=== PATIENT | female | born 1930 | race Caucasian/White ===

== ENCOUNTER 2016-10-18 13:59 | Inpatient (IN) | payer MEDICARE, OTHER ==
[~2016-10-18] VITALS: Ht 157.5 cm; Wt 64.2 kg
--- NOTE | ~2016-10-18 | HP ---
PATIENT'S NAME: JOSHUA RODRIGUEZ [facility] AGE: 86 Y [address] ROOM: [place] [address] [place] [facility] [place]: 10/18/2016 History & Physical DISCHARGE DATE: FAMILY PHYSICIAN: Cheyenne Rasmussen MD ATTENDING PHYSICIAN: TEGAN TRAN DATE OF SERVICE: CHIEF COMPLAINT: Left leg cellulitis. HISTORY OF PRESENT ILLNESS: This is an 86-year-old female with a long history of essential thrombocytosis and a newly diagnosed AML, on chemo for that with Dr. Trevino, who presents from their office with left leg cellulitis that failed outpatient treatment. The patient was noted to have left leg cellulitis for about 2 weeks and has been tried with oral antibiotics as well as IV antibiotics with clindamycin and then later ceftriaxone, but left leg cellulitis and redness continued to spread and expand and showing no resolution. The patient also throughout the course of the infection was noted to have on and off subjective fevers and low- grade fevers measured at clinic as well. The patient is now admitted for further management and evaluation after failing outpatient treatment. The patient during my evaluation is in no apparent distress, very pleasant. Does not describe any complaints. Denies any fever or chills. Does describe some pain in her left lower leg that is rated about 4/10, otherwise, very comfortable. The patient denies any cough, chest pain, shortness of breath, dizziness, or lightheadedness as well. Denies any nausea, vomiting, diarrhea, or constipation. PAST MEDICAL HISTORY: 1. AML, recently started on chemo. 2. Essential thrombocytosis. FAMILY HISTORY: The patient has a history of heart disease in the father. SOCIAL HISTORY: The patient is fairly independent. No history of alcohol, drug, or smoking history. REVIEW OF SYSTEMS: A 10-point review of systems was conducted and were all negative except as mentioned in the HPI. PHYSICAL EXAMINATION: PATIENT'S NAME: JOSHUA RODRIGUEZ [facility] AGE: 86 Y [address] ROOM: [place] [address] [place] [facility] [place]: 10/18/2016 History & Physical DISCHARGE DATE: FAMILY PHYSICIAN: Cheyenne Rasmussen MD ATTENDING PHYSICIAN: TEGAN TRAN VITAL SIGNS: Blood pressure 132/68, heart rate 106, respiratory rate 18, saturating 98% on room air. GENERAL: The patient awake, alert, and oriented x3. No apparent distress. HEENT: Moist mucous membranes. No scleral icterus or conjunctival pallor noted. SKIN: Left lower extremity swollen, erythematous, and warm to touch as well. HEART: S1 and S2. Regular rate and rhythm. LUNGS: Clear to auscultation bilaterally. ABDOMEN: Soft, nontender, nondistended, with positive bowel sounds. MUSCULOSKELETAL: Ankle pain noted with range of motion, but this is related to the swelling around the area from the cellulitis. NEURO: Grossly nonfocal. LABORATORY DATA: Admission labs pending. ASSESSMENT AND PLAN: 1. Left lower extremity cellulitis. The patient has been treated with clindamycin and ceftriaxone as an outpatient for the past 2 weeks without showing significant improvement. This is in the setting of immune compromise with relation to her active acute myeloid leukemia and being on chemo for that. The patient, otherwise, is hemodynamically stable. We will draw blood cultures x2 and start treatment with IV vancomycin and follow clinical progress. 2. Acute myeloid leukemia. Closely follows up with Dr. Trevino. Has finished 2 cycles of chemo so far. 3. Essential thrombocytosis. Has had a long history of this. Had been on hydroxyurea for several years until her recent diagnosis of acute myeloid leukemia. 4. Deep venous thrombosis prophylaxis. We will use subcutaneous heparin. MD YENNY WRIGHT/arnaldo /[id number] D: [id number] T: [id number] HISTORY & PHYSICAL
--- NOTE | ~2016-10-18 | ESTC ---
Cardiac Perfusion Imaging Demographics Patient Name MICHAEL Crum Gender Female Patient Number [id number] Race Visit Number [id number] Ethnicity Corporate ID Room Number G3220 Accession Number [id number] Height 62 inches Date of 1930 Weight 140 pounds Interpreting Jose Morel Date of study 11/06/2016 Physician Supervising /HALEY [place] Technologist Danilo Raphael MD Ordering Physician Jose Morel Stress Miracle Tan MD air and hydronic balancing technician [facility] Stress ECG Reading Romelia [place] Nurse Ana Rinaldi RN Physician Procedure Procedure Type: Nuclear Stress Test:Pharmacological, Lexiscan, Cardiolite Stress Test Procedure Start time: 11/06/2016 08:11 Indications: NSVT and Chest discomfort. Conclusions Summary Small inferolateral mild reversible defect most consistent with ischemia. LVEF:72%. No RWMAs. Stress Protocols Resting ECG NSR Pre-stress physical exam: s1 s2, rrr no wheezing o2 sats 100% on RA Predicted HR: 133 bpm ECG Findings No ECG changes suggestive of ischemia. Arrhythmias No rhythm abnormality. Symptoms Chest tightness. Shortness of breath. Stress Interpretation Appropriate hemodynamic response to Lexiscan. No significant ST-T wave changes with Lexiscan. ECG portion is negative for ischemia by diagnostic criteria. Imaging Results High risk findings Summed scores - Summed stress score: 12 - Summed rest score: 8 - Summed difference score: 4 Stress ejection Ejection fraction:73 % EDV :73 ml ESV :20 ml Stroke volume :53 ml LV mass :105 gr LV size:Normal Normal LV function Imaging Protocols Rest Stress Isotope:Tc99m Sestamibi IV Isotope: Tc99m Sestamibi IV Isotope dose:9.9 mCi Isotope dose:32.2 mCi Date:11/06/2016 07:10 Date:11/06/2016 08:27 Technique: SPECT Technique: Gated Supine SPECT Supine IV remains in place after procedure. Scan Time:45-60 minutes post Scan Time:45-60 minutes post injection injection Procedure Medications - Regadenoson (Lexiscan) 0.4 mg IV over 10-15 sec. I.V. . - aminophylline 125 mg IV . Medical History Admission Data Admission date: 10/18/2016 Admission Time: 13:59 Hospital Status: Inpatient. Signatures dtt: Maria Teresa Garcia dtd: 11/06/16 0811 Physician Self Edit
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
--- NOTE | ~2016-10-18 | CON ---
PATIENT'S NAME: JOSHUA GUZMAN [facility] AGE: 86 Y [address] ROOM: [place] [address] [place] [facility] [place] DATE: 10/18/2016 Consultation DISCHARGE DATE: FAMILY PHYSICIAN: Cheyenne Rasmussen MD ATTENDING PHYSICIAN: TEGAN TRAN DATE OF CONSULTATION: 10/31/2016 REFERRING PHYSICIAN: Asia Trevino MD INFECTIOUS DISEASE CONSULTATION REASON FOR CONSULTATION: Nonresponding left lower extremity infection. HISTORY: Ms. Guzman is an 86-year-old female with a history of previously diagnosed essential thrombocytosis and recently diagnosed with AML. She has been on chemotherapy. She has been neutropenic as well. She apparently developed a left lower extremity cellulitis without any antecedent trauma, has been treated as an outpatient initially with oral antibiotics and then clindamycin and ceftriaxone, but erythema and pain seemed to not resolve, so she was admitted to the hospital. She has now been on Zosyn and clindamycin here along with a little bit of vancomycin after presentation. She is still continuing to have a very poor response. Her leg is quite sore, tender, swollen, and red. She reported that she had on and off fevers prior to coming in and then here as well. She is still on treatment and hoping to get more chemo. She has been told that she is not curable but wants to continue treatment apparently. PAST MEDICAL HISTORY: Significant for AML and chemo and a prior history of essential thrombocytosis. FAMILY HISTORY: Positive for heart disease. SOCIAL HISTORY: She does not smoke, drink, or use illicit drugs. MEDICATIONS: Noted. She is on Zosyn since admission. She has been on clindamycin, last about 3 to 4 days. REVIEW OF SYSTEMS: All remaining review of systems otherwise negative with pertinent positives and negatives in the HPI. PATIENT'S NAME: JOSHUA GUZMAN [facility] AGE: 86 Y [address] ROOM: [place] [address] [place]: [facility] [place] DATE: 10/18/2016 Consultation DISCHARGE DATE: FAMILY PHYSICIAN: Cheyenne Rasmussen MD ATTENDING PHYSICIAN: TEGAN TRAN PHYSICAL EXAMINATION: GENERAL: She is not in any acute distress. Sitting up in a chair. Awake, alert, and oriented. She seems in a very good shape for an 86-year-old with AML. VITAL SIGNS: Her T-max is 98.5, blood pressure 154/66, pulse is 107, respirations are 18. HEENT: Without icterus or thrush. LUNGS: Clear. HEART: Little tachy and regular. ABDOMEN: Soft and nontender. EXTREMITIES: Show erythema and some skin peeling in her left pretibial area, about [facility] down towards just above the ankle. It is quite tender, and there is obvious induration and appears to be maybe some fluid collection underneath but hard to tell. It is warm. It appears to be consistent with infection. SKIN: Otherwise without rash. She does have a small scab on her right dorsal hand. DATA: Her white count, she has been neutropenic since she has been here, currently 1.6 today with an absolute neutrophil count of 300, hemoglobin 7.1, platelet count 163. Creatinine 0.7. CRP 2.05. Blood cultures have no growth. Urine culture has no growth. Stool C. diff toxin on 10/24 has no growth. MRI showed no abscess or osteo. subcutaneous edema and skin thickening, which may reflect cellulitis. Edema enhancement within the muscles could be reactive or less likely infectious myositis, diabetic myonecrosis would the consideration as well. ASSESSMENT AND PLAN: 1. Left calf skin and soft tissue infection. Strongly suspect she has a deep infection here. She does not have posture abscess on MRI but clearly does not have any neutrophils to make any pus or abscess. Bad situation unfortunately given her leukemia and neutropenia. We will change her antibiotics to vancomycin and meropenem and see if we get any response here. This unfortunately could be a limb threatening deal if we can not get this to start to improve, however, does show some signs of improvement but is certainly not resolved despite weeks and weeks of antibiotics. We will see how she does. Possible, she may need a debridement of any necrotic fatty tissue etc., however, I do not know if things are going to heal if she does have a procedure. Unfortunately, in the big scheme of things, she has AML and is 86 years old. After having had a myeloproliferative disorder, I suspect her prognosis is extremely poor. Infection is highly likely in this setting, and even though she is in very good shape for 86 years old, she still has a poor prognosis. PATIENT'S NAME: JOSHUA GUZMAN [facility] AGE: 86 Y [address] ROOM: [place] [address] [place]: [facility] [place] DATE: 10/18/2016 Consultation DISCHARGE DATE: FAMILY PHYSICIAN: Cheyenne Rasmussen MD ATTENDING PHYSICIAN: TEGAN TRAN Please call with questions. MD LIZZ GORDON/modl /[id number] d: 10/31/16 2320 t: 11/06/16 1451, CONSULTATION REPORT
--- NOTE | ~2016-10-18 | CON ---
PATIENT'S NAME: JOSHUA GUZMAN [facility] AGE: 86 Y [address] ROOM: [facility] [place], [place] [address] LOCATION: [place] ADMIT DATE: 10/18/2016 Consultation DISCHARGE DATE: FAMILY PHYSICIAN: Cheyenne Rasmussen MD ATTENDING PHYSICIAN: TEGAN TRAN DATE OF CONSULTATION: 11/06/2016 REFERRING PHYSICIAN: Asia Trevino MD FOLLOWUP INPATIENT CONSULTATION NOTE HISTORY OF PRESENT ILLNESS: I re-evaluated Ms. Guzman on November 06, 2016. She states that her left lower extremity swelling, discomfort, and tenderness has improved moderately over the past week. She denies numbness or paresthesias at her left foot. She states that she is bearing full weight without difficulty. PHYSICAL EXAMINATION: There is still moderate induration circumferentially at the distal third of the tibia. There was no residual erythema. There is no fluctuance. There are no active skin lesions. There is no swelling, tenderness, erythema, or induration at the proximal two-third of the left calf. There is full range of motion of the left ankle with 5/5 motor strength with ankle dorsiflexion and plantar flexion strength. 1+ dorsalis pedis pulse. Sensation to light touch intact circumferentially at the left foot. IMPRESSION: Cellulitis, left leg (slowly resolving). No evidence of abscess formation. No evidence of compartment syndrome. No necrotic tissue to debride. PLAN: Continue IV antibiotics. I will continue to monitor her. I have reviewed her status directly with Concepcion Cordero PA-C, and updated her regarding my thoughts and recommendations. I have asked to be contacted if there is any perception if the patient is deteriorating. MD MISHA HERNANDEZ/arnaldo /[id number] d: 11/09/16 0047 t: 11/17/16 1005, CONSULTATION REPORT
--- NOTE | ~2016-10-18 | CON ---
PATIENT'S NAME: JOSHUA RODRIGUEZ [facility] AGE: 86 Y [address] ROOM: [place] [address] [place] [facility] [place] DATE: 10/18/2016 Consultation DISCHARGE DATE: FAMILY PHYSICIAN: Cheyenne Rasmussen MD ATTENDING PHYSICIAN: TEGAN TRAN DATE OF CONSULTATION: 10/23/2016 REFERRING PHYSICIAN: Ole Ojeda M.D. REASON FOR VISIT: Left lower leg cellulitis. HISTORY OF PRESENT ILLNESS: This is a pleasant 86-year-old female patient who was admitted to [facility] with left lower leg cellulitis. She has significant history of AML (recently diagnosed), thrombocytosis, and a left lower leg DVT. The patient has had cellulitis about one month now. She failed outpatient therapy with clindamycin and ceftriaxone. The patient was noted to have a low- grade fever at home, so she was admitted for further treatment. The patient denies history of congestive heart failure, PE, venous insufficiency, shortness of breath, or changes in bowel habits. She denies pain. She reports a fair oral intake. She is normally able to complete her activities of daily living at home. She is complaining of right buttocks "discomfort." PAST MEDICAL HISTORY: 1. AML, recently diagnosed. The patient sees Dr. Trevino. 2. Essential thrombocytosis. 3. History of left lower leg DVT. 4. Constipation. PAST SURGICAL HISTORY: Bilateral cataract removal, tonsillectomy, removal of benign cyst from bilateral breasts, D and C. FAMILY HISTORY: The patient's father from an [place]. SOCIAL HISTORY: The patient lives in [place], [place]. She quit smoking in 2000. She denies alcohol or illicit drug use. ALLERGIES: PATIENT'S NAME: JOSHUA RODRIGUEZ [facility] AGE: 86 Y [address] ROOM: [place] [address] [place] [facility] [place] DATE: 10/18/2016 Consultation DISCHARGE DATE: FAMILY PHYSICIAN: Cheyenne Rasmussen MD ATTENDING PHYSICIAN: TEGAN TRAN CODEINE. CURRENT MEDICATIONS: Pertinent to this dictation Zosyn IV. Please refer to the eMAR for further details. REVIEW OF SYSTEMS: A 10-point review of systems was completed and all are negative except as mentioned above in the HPI. PHYSICAL EXAMINATION: VITAL SIGNS: Temperature 98.1, pulse 105, respirations 16, blood pressure 154/74, and pulse oximetry 93% on room air. Height 5 feet and 2 inches and weight 62.8 kg. GENERAL: The patient is alert and oriented x3. Pleasant with cares. In no acute distress. Appears her stated age. HEENT: Head normocephalic and atraumatic. Oral mucosa intact. NEUROLOGIC: Grossly nonfocal. LUNGS: Respirations even and unlabored. ABDOMEN: Soft and nontender. EXTREMITIES: +2 pedal pulses. Capillary refill intact. Left lower extremity hot to touch. SKIN: Left lower extremity has +1 edema. Erythemic and hot to touch. Negative Homans signs. Improving per the patient. No open areas noted. Dry flakes noted to left posterior calf. Heels intact. Right buttock has a small blanchable red area with skin rolling. LABORATORY DATA: White blood cell count 1.7, hemoglobin 8.5, hematocrit 25.6, and platelets 64. Sodium 143, potassium 3.3, chloride 109, bicarb 23, BUN 8, creatinine 0.7, glucose 98, and prealbumin 10. ASSESSMENT AND PLAN: Again, this is a pleasant 86-year-old female patient who was admitted to [facility] with left leg cellulitis. 1. Left lower extremity cellulitis. Improving per the patient. She is on IV Zosyn. Discussed compression options with the patient. She would benefit from an Unna boot. She is very hesitant. She is willing to try a Tubigrip stocking. I instructed nursing to apply Tubigrip size C to bilateral lower legs from her toes to her popliteal crease. The patient is to have on in the morning and off at bedtime. Discussed elevation. The patient is to have her left leg at waist level or higher at all times when lying in bed. Discussed the importance of ankle/calf pump muscle exercises. I do not see a venous Doppler in [employer] or on the patient's chart, however, per hospitalist SHIPMASTER's note it was negative. PATIENT'S NAME: JOSHUA RODRIGUEZ [facility] AGE: 86 Y [address] ROOM: [address] [address] [place] [facility] [place] DATE: 10/18/2016 Consultation DISCHARGE DATE: FAMILY PHYSICIAN: Cheyenne Rasmussen MD ATTENDING PHYSICIAN: TEGAN TRAN 2. AML. The patient on neutropenic precautions. Dr. Trevino on board. Low prealbumin. The patient may benefit from supplements or dietary consult. 3. History of left leg deep venous thrombosis. The patient is on heparin. 4. Right buttock blanchable red area with skin rolling. This is not a pressure ulcer but could develop into one. Discussed pressure redistribution measures with the patient. She is to turn in bed side-to- side q.2 hours. Iris cushion needs to be placed to her chair. She is to be of no longer than 2 hours at a time. Nursing is to apply Aloe [place] q.i.d. and p.r.n. incontinence to right buttock. I would like to thank Dr. Ojeda for this consultation. ROMAN DUMONT APRN FOR MD RAYNE FINLEY/arnaldo /[id number] d: 10/23/16 1735 t: 11/19/16 1508, CONSULTATION REPORT
--- NOTE | ~2016-10-18 | DS ---
PATIENT'S NAME: JOSHUA RODRIGUEZ [facility] AGE: 86 Y [address] ROOM: [address] [place] [id number] LOCATION: [facility] [place] ADMIT DATE: 10/18/2016 Discharge Summary DISCHARGE DATE: 11/10/2016 FAMILY PHYSICIAN: Cheyenne Rasmussen MD ATTENDING PHYSICIAN: Ole Ojeda PRIMARY DIAGNOSES: 1. Left lower extremity cellulitis. 2. Myositis, left lower extremity. 3. Pancytopenia secondary to chemotherapy. 4. Neutropenia. 5. Acute myelogenous leukemia. 6. Tachycardia, physiologic. 7. Chronic diastolic congestive heart failure. 8. Acute hypoxic respiratory failure. 9. Paroxysmal supraventricular tachycardia. 10. Chronic deconditioning. OPERATIONS OR PROCEDURES: Nuclear stress test was carried out 11/06/[address] scan per PE protocol, performed on 11/06/2016, negative for PE. Small bilateral pleural effusions were noted. Echocardiogram was performed on 10/22/2016, demonstrating an ejection fraction of 60%, mild aortic stenosis, and an elevated RVSP at 40. HISTORY OF ILLNESS/REASON FOR ADMISSION: Please refer to the H and P dictated on 10/18/[address] Frazier. HOSPITAL COURSE: The patient was admitted to hospital as noted above with a presumptive diagnosis of left lower extremity cellulitis. Please see the hospital chart for specific details regarding this fairly extended hospital stay. Briefly, she was treated with broad-spectrum antibiotic therapy for suspected cellulitis. She was not septic. IV vancomycin was given, and she was monitored closely. Her clinical progress was very slow. She did receive some local wound care with the wound ostomy care nurse. Hematology/Oncology also monitored the patient over the course of her hospital stay. The skin findings including erythema, resolved relatively quickly; however, the patient had some persistent induration and tenderness overlying the left leg. Imaging studies were obtained, and Orthopedic Surgery was consulted. It was felt that she had some deep tissue involvement including myositis, but no abscess and no indication for any surgical intervention. The antibiotic regimen was continued. PATIENT'S NAME: JOSHUA RODRIGUEZ [facility] AGE: 86 Y [address] ROOM: [address] [place], [place] [address] LOCATION: [facility] [place] ADMIT DATE: 10/18/2016 Discharge Summary DISCHARGE DATE: 11/10/2016 FAMILY PHYSICIAN: Cheyenne Rasmussen MD ATTENDING PHYSICIAN: Ole Ojeda The patient remained clinically stable over the course of her hospital stay. Her counts were quite low, and she did require some PRBC transfusion. Because of her neutropenic status, she was continued on broad-spectrum antibiotic therapy. There were some adjustments made to the regimen, and Infectious Disease was eventually consulted as well. She did develop some episodes of PSVT, and Cardiology was consulted. There was concern for PE and CT angiogram was obtained, but this was negative. She did undergo Lexiscan Cardiolite stress testing, but was recommended for medical management only. By the end of her third week of her hospital stay it was felt she would be stable enough for discharge to home. Off IV antibiotic therapy and plans for close clinical followup with primary care provider. DISCHARGE INSTRUCTIONS: DIET: Regular as tolerated. ACTIVITY: As tolerated. MEDICATIONS: 1. Acyclovir 800 mg p.o. b.i.d. 2. Fluconazole 100 mg p.o. daily. 3. Levofloxacin 500 mg p.o. daily. 4. Acetaminophen 325 mg p.o. q.4 hours p.r.n. 5. Zofran 8 mg p.o. q.6 hours p.r.n. nausea. 6. Multivitamin daily. 7. Metoprolol 75 mg p.o. b.i.d. 8. Minocycline 100 mg p.o. b.i.d. 9. Florastor 250 mg p.o. b.i.d. 10. Tramadol 50 mg p.o. q.6 hours p.r.n. pain. FOLLOWUP: She will follow up with her primary care provider, Dr. Rasmussen, in 3 days. Follow up with Dr. Trevino, Hematology/Oncology in 5 days. She will have home health with [facility] and physical therapy and occupational therapy at home. CONDITION ON DISCHARGE: Fair. Total time spent on discharge process, 60 minutes. PATIENT'S NAME: JOSHUA RODRIGUEZ [facility] AGE: 86 Y [address] ROOM: [address] [address] LOCATION: [facility] [place] ADMIT DATE: 10/18/2016 Discharge Summary DISCHARGE DATE: 11/10/2016 FAMILY PHYSICIAN: Cheyenne Rasmussen MD ATTENDING PHYSICIAN: Ole Ojeda MD AJS/arnaldo /[id number] d: 11/22/16 0403 t: 11/23/16 0804, DISCHARGE SUMMARY
--- NOTE | ~2016-10-18 | ECHO ---
Transthoracic Echocardiography Report (TTE) Demographics Patient Name JOSHUA RODRIGUEZ Date of Study 10/22/2016 Patient Number [id number] Visit Number [id number] Date of 1930 Room Number G3213 Accession Number [id number] Gender Female Age 86 year(s) Referring Allie Desouza MD Manager Web Application Miracle Tan Physician CS Physician Interpreting Jose Morel Rn Telephone Triage Physician Supervising Ordering Physician /MLP Nurse Stress Senior Supplier Quality Engineer Conclusions Summary The estimated left ventricular ejection fraction is 60% with normal WM,wall thickness and internal dimensions. Mild mitral regurgitation by color Doppler. There is mild aortic stenosis by the Continuity Equation. The peak velocity is 2.04 m/s, the mean gradient is 11 mmHg, and the valve area based on the continuity equation is 1.69 cm2, stroke volume index is 39.25 ml/m2. Mild tricuspid regurgitation by color Doppler. There is mild TR with the pulmonary pressures (RVSP) is in the mid 40s. Procedure Type of Study TTE procedure:2D Echocardiogram. Procedure Date Date: 10/22/2016 Start: 09:25 AM Study Location: Inpatient Portable Indications:Tachycardia. Additional Indications:Cancer Patient Appropriate Use Criteria: 9 Patient Status: Routine HR: 105 bpm BP: 134/62 mmHg M-Mode/2D Measurements LV Diastolic Dimension: 4.68 cm LV Systolic Dimension: 3.51 cm LV Septum Diastolic: 1 cm LV PW Diastolic: 1 cm AO Root Dimension: 2 cm Cardiac Output: 6.76 l/min AV Cusp Separation: 1 cm RV Diastolic Dimension: 3.08 cm LA volume: 46 ml LVOT: 2 cm RV Base: 2.79 cm LVOT VTI: 20.5 cm RV Mid: 1.95 cm LV Stroke volume: 64.37 ml TAPSE: 3.37 cm TDI-S': 18 cm/s Doppler Measurements AV Peak Velocity: 2.04 m/s MV Peak E-Wave: 0.86 m/s AV Peak Gradient: 16.65 mmHg MV Peak A-Wave: 1.23 m/s AV Mean Gradient: 10 mmHg MV E/A Ratio: 0.7 LVOT Peak Velocity: 1.11 m/s MV P1/2t: 32 msec TR Gradient:35.76 mmHg PV Peak Velocity: 1.28 m/s Estimated RAP:10 mmHg PV Peak Gradient: 6.55 mmHg Estimated RVSP: 46 mmHg Estimated PASP: 45.76 mmHg E' Septal Velocity: 0.06 m/s A' Septal Velocity: 0.09 m/s E' Lateral Velocity: 0.07 m/s A' Lateral Velocity: 0.11 m/s Findings Left Ventricle Normal left ventricle size and function. Right Ventricle Normal right ventricle structure and function. Left Atrium Normal left atrial size. Right Atrium Normal right atrial size. Mitral Valve Mild mitral regurgitation by color Doppler. Aortic Valve There is mild aortic stenosis by the Continuity Equation. The peak velocity is 2.04 m/s, the mean gradient is 11 mmHg, and the valve area based on the continuity equation is 1.69 cm2, stroke volume index is 39.25 ml/m2. Tricuspid Valve Mild tricuspid regurgitation by color Doppler. There is moderate pulmonary hypertension. The pulmonary pressure (RVSP) is 45 mmHg. Pulmonic Valve Normal pulmonic valve structure and function. Pericardial Effusion No evidence of pericardial effusion. Miscellaneous Visualized portions of the aortic root and ascending aorta appear normal in size. Pleural Effusion No evidence of pleural effusion. Contractility Score LV regional wall motion:(0-Non visualized 1-Normal 2-Hypokinesis 3-Akinesis 4-Dyskinesis 5-Aneurysm) Signature dtt: Maria Teresa Garcia dtd: 10/22/16 0925 Physician Self Edit
[~2016-10-18 13:59] MED LIST: DIFLUCAN100 MG PO; LEVAQUIN500 MG PO; TYLENOL325 MG PO; ZOVIRAX800 MG PO
[2016-10-18] MEDS ORDERED: ZOFRAN8 MG PO (14:42)
[2016-10-18] MEDS ORDERED: THERAGRAN-M1 TAB PO (14:42)
--- NOTE | 2016-10-18 16:24 | NUR ---
Pt is 86 y/o female admit for left leg cellulitis for hospitalist. Allergies to advil,benadryl,and codeine. Red and yellow bracelets on. Pt alert and oriented x3. Family at bedside. Resides at home with . Hx leukemia- dx'd 2 months ago,DVT,cellulitis around ankles,leaking/dribbling,urgency, ongoing chemo tx's. Pt came over from ' office. Pt has been treating her cellulitis for about a month with oral clindamycin and IV Rocephin as an outpatient but has had no improvement.
--- NOTE | 2016-10-18 17:09 | NUR ---
Significant Event: Patient admitted to floor for left lower leg cellulitis. Will be started on IV fluids and antibiotics. Rates pain at a 5. Leg elevated on a pillow per patient request. Patient does have leg pump to right leg but not to left. Redness marked for reference. Regular diet. IV started 2 days ago at cancer center prior to blood transfusion. Follow up: Continue to monitor.
[2016-10-18 18:02] LABS: HEMATOCRIT 32.9 % (30.0-46.0); HEMOGLOBIN 10.8 g/dL (10.0-15.0); MCH 29.8 pg (27.0-34.0); MCHC 32.8 gm/dL (32.0-36.5); MCV 90.6 fl (83.0-98.0); MPV 9.5 fl (9.4-12.4); PLATELET COUNT 66 K/uL (150-450); RBC 3.63 M/uL (3.00-5.00); RDW-CV 17.4 % (11.9-14.6); WBC 2.4 K/uL (4.0-11.0)
[2016-10-18 18:18] LABS: ALBUMIN 2.8 gm/dL (3.5-5.0); BLOOD UREA NITROGEN 19 mg/dL (6-24); CALCIUM 8.6 mg/dL (8.5-10.5); CHLORIDE 105 mMol/L (96-110); CO2 26 mMol/L (22-32); CREATININE 0.7 mg/dL (0.5-1.1); ESTIMATED GFR (MDRD EQUATION) > 60; MAGNESIUM 2.3 mg/dL (1.3-2.6); PHOSPHORUS 3.5 mg/dL (2.5-4.9); SODIUM 141 mMol/L (135-145)
[2016-10-18 19:03] LABS: ABSOLUTE NEUTROPHIL CT (ANC) 0.4 K/uL (1.8-7.8); LYMPHOCYTE # 1.7 K/uL (0.8-4.0); LYMPHOCYTE % 67 %; MONOCYTE # 0.3 K/uL (0.0-1.0); SEGMENTED NEUTROPHIL # 0.4 K/uL (1.8-7.8); SEGMENTED NEUTROPHIL % 16 %
--- NOTE | 2016-10-19 04:38 | NUR ---
Significant Event: A/0 X 3. HAD ULTRAM 50MG TAB X 2, LAST AT 0328 FOR PAIN RATED AT 3. LATER SLEEPING. LEFT LEG ELEVATED ON PILLOW. IV RESTARTED BY FLIGHT IN RIGHT UPPER ANTERIOR FOREARM. HAS RIGHT CALF PNEUMATIC ON. NONE ON LEFT LEG. HAS REDDNESS AND EDEMA TO LEFT LOWER [id number]. DENIES NUMBNESS TINGLING. ON ATB THERAPY. Follow up:
[2016-10-19 05:07] LABS: HEMATOCRIT 30.4 % (30.0-46.0); HEMOGLOBIN 9.8 g/dL (10.0-15.0); MCH 29.3 pg (27.0-34.0); MCHC 32.2 gm/dL (32.0-36.5); MCV 90.7 fl (83.0-98.0); MPV 9.2 fl (9.4-12.4); RBC 3.35 M/uL (3.00-5.00); RDW-CV 17.3 % (11.9-14.6); WBC 2.1 K/uL (4.0-11.0)
[2016-10-19 05:09] LABS: PLATELET COUNT 49 K/uL (150-450)
[2016-10-19 06:17] LABS: ABSOLUTE NEUTROPHIL CT (ANC) 0.5 K/uL (1.8-7.8); BANDED NEUTROPHILS % 1 %; LYMPHOCYTE # 1.4 K/uL (0.8-4.0); LYMPHOCYTE % 68 %; MONOCYTE # 0.2 K/uL (0.0-1.0); SEGMENTED NEUTROPHIL # 0.5 K/uL (1.8-7.8); SEGMENTED NEUTROPHIL % 22 %
--- NOTE | 2016-10-19 13:06 | NUR ---
SPOKE TO PATIENT REGARDING CM AND OUR ROLE. PATIENT LIVES IN OWN HOME WITH HER SPOUSE AND HAS FAMILY THAT LIVE NEAR BY WHO ARE SUPPORTIVE. SHE HAS ALL HER DME AND SHE DOES NOT ANTICPATE ANY DISCHARGE NEEDS AT THIS TIME. CM WILL CONT TO FOLLOW NEEDED.
--- NOTE | 2016-10-19 14:58 | NUR ---
Significant Event: PT AOX3. VSS, HRs SLIGHTLY TACHY, ON ROOM AIR, AFEBRILE. ORDERS TO CALL HOSPITALIST IF TEMP >100.5. PLACED IN NEUTROPENIC PRECAUTIONS PER MD ORDERS. IF PLT ARE <50, HOLD HEPARIN. AMBULATING WITH SBA, GAITBELT AND WALKER. LLE IS EDEMATOUS, RED- ELEVATED ON PILLOW. CONTINUES ON IV ABX, NS RUNNING @ 75 TO R FA. TOLERATING REGULAR DIET. DAILY WT. Follow up: MONITOR LABS, NEUTROPENIC PRECAUTIONS, PAIN CONTROL
[2016-10-19 15:47] LABS: ALBUMIN 2.7 gm/dL (3.5-5.0); ANION GAP 9.2 (10.0-19.0); BLOOD UREA NITROGEN 14 mg/dL (6-24); CALCIUM 8.3 mg/dL (8.5-10.5); CHLORIDE 104 mMol/L (96-110); CO2 29 mMol/L (22-32); CREATININE 0.6 mg/dL (0.5-1.1); ESTIMATED GFR (MDRD EQUATION) > 60; PHOSPHORUS 3.3 mg/dL (2.5-4.9); POTASSIUM 4.2 mMol/L (3.7-5.1); SODIUM 138 mMol/L (135-145)
--- NOTE | 2016-10-20 03:53 | NUR ---
Significant Event:pt is a/o x3. iv to r fa has ns @ 75ml/hr. pt has l leg marked, redness is receding, still john edemotus. pt is a emory w/ walker and gait belt. pt in neutropenic precautions. hold heparin if plt <50. pt slightly tachy in the low 100's. slight hypertension but afebrile. Follow up:
[2016-10-20 04:53] LABS: HEMATOCRIT 30.8 % (30.0-46.0); MCH 28.9 pg (27.0-34.0); MCHC 32.5 gm/dL (32.0-36.5); RBC 3.46 M/uL (3.00-5.00); RDW-CV 16.8 % (11.9-14.6)
[2016-10-20 05:02] LABS: PLATELET COUNT 52 K/uL (150-450); WBC 1.7 K/uL (4.0-11.0)
[2016-10-20 05:09] LABS: ALBUMIN 2.6 gm/dL (3.5-5.0); ANION GAP 11.7 (10.0-19.0); BLOOD UREA NITROGEN 10 mg/dL (6-24); CALCIUM 8.3 mg/dL (8.5-10.5); CHLORIDE 107 mMol/L (96-110); CO2 26 mMol/L (22-32); CREATININE 0.6 mg/dL (0.5-1.1); ESTIMATED GFR (MDRD EQUATION) > 60; PHOSPHORUS 3.6 mg/dL (2.5-4.9); POTASSIUM 3.7 mMol/L (3.7-5.1); SODIUM 141 mMol/L (135-145)
[2016-10-20 06:00] LABS: ABSOLUTE NEUTROPHIL CT (ANC) 0.5 K/uL (1.8-7.8); BANDED NEUTROPHIL # 0.1 K/uL (0.0-0.1); BANDED NEUTROPHILS % 5 %; LYMPHOCYTE # 0.9 K/uL (0.8-4.0); LYMPHOCYTE % 53 %; MONOCYTE # 0.3 K/uL (0.0-1.0); SEGMENTED NEUTROPHIL # 0.4 K/uL (1.8-7.8); SEGMENTED NEUTROPHIL % 24 %
--- NOTE | 2016-10-20 16:20 | NUR ---
Significant Event: PT AOX3. VSS ON RA, AFEBRILE. REMAINS IN NEUTROPENIC PRECAUTIONS. TOLERATING A REGULAR DIET. DAILY WT. ORDERS TO HOLD HEPARIN IF PLT <50, PLT 52 THIS AM, GAVE. LLE REMAINS EDEMATOUS. ORDERS TO PROP ON 2 PILLOWS WITH ICE TO POSTERIOR SIDE. 500ML BOLUS NS GAVE, CURRENTLY RUNNING AT 100/HR, THEN TRA 42ML/HR. AMBULATES TO BR WITH SBA, WALKER. STATES PAIN IS ONLY PRESENT WHEN UP ON LEG. Follow up: NOTIFY MD IF HR >120, LABS IN AM
--- NOTE | 2016-10-21 04:23 | NUR ---
Significant Event:pt is a/o x3. pt is a sba w/ walker. pt has iv to r AC w/ ns@ 42ml/hr. pt slightly tachy all shift. c/o mild pain to left leg, wose when ambulating. pt is iso for neutropenic precautions. pt will have 0500 dose of zosyn running at shift change. Follow up:
[2016-10-21 05:19] LABS: HEMATOCRIT 28.4 % (30.0-46.0); HEMOGLOBIN 9.3 g/dL (10.0-15.0); MCH 29.3 pg (27.0-34.0); MCHC 32.7 gm/dL (32.0-36.5); MCV 89.6 fl (83.0-98.0); MPV 9.9 fl (9.4-12.4); RBC 3.17 M/uL (3.00-5.00); RDW-CV 16.2 % (11.9-14.6)
[2016-10-21 05:22] LABS: WBC 1.9 K/uL (4.0-11.0)
[2016-10-21 05:23] LABS: PLATELET COUNT 53 K/uL (150-450)
[2016-10-21 06:03] LABS: ABSOLUTE NEUTROPHIL CT (ANC) 0.3 K/uL (1.8-7.8); LYMPHOCYTE # 1.3 K/uL (0.8-4.0); LYMPHOCYTE % 71 %; MONOCYTE # 0.2 K/uL (0.0-1.0); SEGMENTED NEUTROPHIL # 0.3 K/uL (1.8-7.8); SEGMENTED NEUTROPHIL % 16 %
[2016-10-21 12:10] LABS: ANION GAP 12.5 (10.0-19.0); BLOOD UREA NITROGEN 10 mg/dL (6-24); CALCIUM 8.1 mg/dL (8.5-10.5); CHLORIDE 106 mMol/L (96-110); CO2 26 mMol/L (22-32); CREATININE 0.8 mg/dL (0.5-1.1); ESTIMATED GFR (MDRD EQUATION) > 60; MAGNESIUM 2.2 mg/dL (1.3-2.6); PHOSPHORUS 3.1 mg/dL (2.5-4.9); POTASSIUM 3.5 mMol/L (3.7-5.1); SODIUM 141 mMol/L (135-145)
[2016-10-21 14:02] LABS: BILIRUBIN URINE NEGATIVE (NEGATIVE); BLOOD URINE NEGATIVE /UL (NEGATIVE); COLOR URINE YELLOW (YELLOW); GLUCOSE URINE NEGATIVE (NEGATIVE); KETONE URINE NEGATIVE (NEGATIVE); LEUKOCYTES URINE NEGATIVE /UL (NEGATIVE); NITRITE URINE NEGATIVE (NEGATIVE); PROTEIN URINE NEGATIVE (NEGATIVE); TURBIDITY URINE CLEAR (CLEAR); UROBILINOGEN URINE NORMAL (NORMAL)
--- NOTE | 2016-10-21 18:48 | NUR ---
Significant Event: PT AOX3. VSS ON RA, AFEBRILE. AMBULATES WITH SBA, WALKER. REMAINS IN NEUTROPENIC ISOLATION. CONTINUES ON IV ABX. NEW IV STARTED TO L HAND. NS INCREASED TO 75ML/HR. UA & CULTURE SENT TO LAB. EKG DONE. WILL HAVE ECHO TOMORROW. BMX1, FORMED AND HARD. STARTED ON COLACE. PT IS DAILY WT. LLE STILL EDEMATOUS, KEEP ELEVATED ON 2 PILLOWS. Follow up: CONTINUE TO MONITOR
--- NOTE | 2016-10-22 04:30 | NUR ---
Significant Event:PT IS A/O X3. PT IS A SBA W/ WALKER TO BATHROOM. NNED TO KEEP L FOOT ELEVATED AND ENCOURAGE ICE TO L CALF.. PT TO GET ECHO TODAY. IV TO L HAND HAS NS @ 75ML/HR. PT HAS BEEN AFEBRILE SLIGHTLY TACHYCARDIC. PT FOUND POUT LAST NIGHT THAT HER HAS BEEN ADMITTED TO THE HOSPITAL LAST NIGHT. REDNESS TO L LEG HAS RECEDED FROM THE ORIGINAL OUTLINE BUT STILL VERY RED AND EDEMOTOUS TO LOWER LEG. PT STATES IT HURTS BUT IS TOLERABLE , WORSE WHEN AMBULATING.. PT IS IN NEUTROPENIC PRECAUTIONS. Follow up:
[2016-10-22 05:39] LABS: HEMOGLOBIN 9.1 g/dL (10.0-15.0); MCH 29.6 pg (27.0-34.0); MCHC 33.7 gm/dL (32.0-36.5); MCV 87.9 fl (83.0-98.0); MPV 8.7 fl (9.4-12.4); RBC 3.07 M/uL (3.00-5.00); RDW-CV 16.2 % (11.9-14.6)
[2016-10-22 05:41] LABS: PLATELET COUNT 44 K/uL (150-450); WBC 1.7 K/uL (4.0-11.0)
[2016-10-22 05:59] LABS: ALBUMIN 2.5 gm/dL (3.5-5.0); ALK PHOS 49 IU/L (33-138); ALT 24 IU/L (12-78); ANION GAP 13.3 (10.0-19.0); AST 18 IU/L (10-40); BLOOD UREA NITROGEN 8 mg/dL (6-24); CALCIUM 7.9 mg/dL (8.5-10.5); CHLORIDE 109 mMol/L (96-110); CO2 24 mMol/L (22-32); CREATININE 0.7 mg/dL (0.5-1.1); ESTIMATED GFR (MDRD EQUATION) > 60; MAGNESIUM 2.2 mg/dL (1.3-2.6); PHOSPHORUS 3.4 mg/dL (2.5-4.9); POTASSIUM 3.3 mMol/L (3.7-5.1); SODIUM 143 mMol/L (135-145); TOTAL BILIRUBIN 0.8 mg/dL (0.0-1.5); TOTAL PROTEIN 6.2 g/dL (6.0-8.4)
[2016-10-22 06:43] LABS: ABSOLUTE NEUTROPHIL CT (ANC) 0.2 K/uL (1.8-7.8); BANDED NEUTROPHILS % 1 %; LYMPHOCYTE # 1.1 K/uL (0.8-4.0); LYMPHOCYTE % 65 %; MONOCYTE # 0.4 K/uL (0.0-1.0); SEGMENTED NEUTROPHIL # 0.2 K/uL (1.8-7.8); SEGMENTED NEUTROPHIL % 13 %
--- NOTE | 2016-10-22 16:44 | NUR ---
AAOx3. Cooperative with cares. SBA w/walker; pt refuses gait belt. IVF and Abx infusing to LFA. VSS, afebrile, on RA. Takes pills one at a time. Redness to LLE slightly receded from outer marking. WOC consult in. Juana brenner/jackie.
--- NOTE | 2016-10-23 03:13 | NUR ---
Significant Event: Pt is alert and oriented. IV to the L)hand IVF and intermittent antibiotics. SBA with walker, pt refused gaitbelt multiple times. Redness to LLE slowly diminishing. Elevate leg. No complaints of pain or nausea. Neutropenic precautions. Daily weight. Follow Up: Continue to monitor.
[2016-10-23 05:22] LABS: HEMATOCRIT 25.6 % (30.0-46.0); HEMOGLOBIN 8.5 g/dL (10.0-15.0); MCH 29.5 pg (27.0-34.0); MCHC 33.2 gm/dL (32.0-36.5); MCV 88.9 fl (83.0-98.0); RBC 2.88 M/uL (3.00-5.00); RDW-CV 16.2 % (11.9-14.6)
[2016-10-23 05:28] LABS: ANION GAP 14.3 (10.0-19.0); BLOOD UREA NITROGEN 8 mg/dL (6-24); CALCIUM 7.9 mg/dL (8.5-10.5); CHLORIDE 109 mMol/L (96-110); CO2 23 mMol/L (22-32); CREATININE 0.7 mg/dL (0.5-1.1); ESTIMATED GFR (MDRD EQUATION) > 60; POTASSIUM 3.3 mMol/L (3.7-5.1); SODIUM 143 mMol/L (135-145)
[2016-10-23 05:56] LABS: PLATELET COUNT 64 K/uL (150-450); WBC 1.7 K/uL (4.0-11.0)
[2016-10-23 06:01] LABS: ABSOLUTE NEUTROPHIL CT (ANC) 0.4 K/uL (1.8-7.8); BANDED NEUTROPHIL # 0.1 K/uL (0.0-0.1); BANDED NEUTROPHILS % 8 %; LYMPHOCYTE # 1.1 K/uL (0.8-4.0); LYMPHOCYTE % 66 %; MONOCYTE # 0.1 K/uL (0.0-1.0); SEGMENTED NEUTROPHIL # 0.3 K/uL (1.8-7.8); SEGMENTED NEUTROPHIL % 15 %
--- NOTE | 2016-10-23 11:47 | NUR ---
A-SCREENED D/T LOS HT: 62 IN. WT: 62.8 KG; 126% IBW. BMI: 25.3 L)LEG CELLUTITIS; EDEMATOUS. REDDNESS DIMINISHING. HX OF LEUKEMIA; DX 2 MOS AGO AND UNDERGOING CHEMO. NO N/V OR DIARRHEA WARNING ANALYST. APPETITE IS REPORTED GOOD. NO UNPLANNED WT LOSS. LABS: AN 143, K+ 3.3, LGU 98, BUN 8, IRONER 0.7, ALB 2.5, PREALB 10.0 MEDS: COLACE, ZOSYN, ZOVIRAX, ULTRAM, DIFLUCAN. VANCO D/C. DIET RX: REGULAR. PO INTAKE HAS BEEN GOOD W/50-100% OF HER MEALS BEING TAKEN. EST NUTR NEEDS: 6190-6478 KCALS (25-30 KCALS/KG) 63-75 GM PROTEIN (1.0-1.2 GM/KG) 1 ML FLUID/KCAL D-NOT AT NUTRITION RISK; NO NUTRITION DX IDENTIFIED AT THIS TIME I-CONTINUE W/CURRENT DIET RX M/E-GOAL: PO INTAKE >/=50% FOR DURATION OF ADMIT 1)F/U PO INTAKE, WT, LABS, AND POC IN 3-5 DAYS 2)ASSIST NEEDED
--- NOTE | 2016-10-23 13:29 | NUR ---
STUDENT NURSE CHART CHECKED BY FITTING ROOM OPERATOR FAYE MCGOVERN RN BSN
--- NOTE | 2016-10-23 16:58 | NUR ---
AAOx3. Up w/one assist and walker; refuses GB. Neutropenic Precautions. Tolerating regular diet well. Tubigrips applied to LE bilat; off at HS, on in a.m. Elevate legs. IVF and intermittent Abx. Bottom reddened; apply Aloe [place] frequently.
--- NOTE | 2016-10-24 04:16 | NUR ---
Significant Event: Pt is alert and oriented. Slightly hypertensive and tachycardic on RA. IV to the L)hand IVF and intermittent antibiotics running. SBA with walker, pt refuses to wear gaitbelt. Elevate LLE. No complaints of pain or nausea. Tolerating a regular diet. Daily weight. Follow Up: Continue to monitor.
[2016-10-24 05:24] LABS: HEMOGLOBIN 8.9 g/dL (10.0-15.0); MCH 29.1 pg (27.0-34.0); MCV 88.2 fl (83.0-98.0); PLATELET COUNT 61 K/uL (150-450); RBC 3.06 M/uL (3.00-5.00); RDW-CV 15.9 % (11.9-14.6)
[2016-10-24 05:29] LABS: WBC 1.6 K/uL (4.0-11.0)
[2016-10-24 05:38] LABS: CREATININE 0.6 mg/dL (0.5-1.1); ESTIMATED GFR (MDRD EQUATION) > 60
[2016-10-24 07:05] LABS: ABSOLUTE NEUTROPHIL CT (ANC) 0.2 K/uL (1.8-7.8); BANDED NEUTROPHILS % 2 %; LYMPHOCYTE % 62 %; MONOCYTE # 0.3 K/uL (0.0-1.0); SEGMENTED NEUTROPHIL # 0.2 K/uL (1.8-7.8); SEGMENTED NEUTROPHIL % 13 %
--- NOTE | 2016-10-24 11:25 | NUR ---
STUDENT NURSE CHART CHECKED BY BIRD TRAPPER FAYE MCGOVERN RN BSN
--- NOTE | 2016-10-24 16:15 | NUR ---
Significant Event: PT AOX.3 VSS, HRs SLIGHTLY TACHY. AMBULATES WITH SBA, WALKER. REMAINS IN NEUTROPENIC ISOLATION. PLACED IN CONTACT ISOLATION, STOOL FOR CDIFF SENT TO LAB- AWAITING RESULTS. PT IS DAILY WT. TOLERATING REGULAR DIET. TO HAVE MRI OF LLE WITH AND WITHOUT CONTRAST. CONTINUES ON IV ABX, OTHERWISE L HAND IV SALINE LOCKED. Follow up: ISOLATION, CONTINUE TO MONITOR
--- NOTE | 2016-10-25 04:35 | NUR ---
Significant Event:PATIENT IS ALERT AND ORIENTED. USES WALKER TO AMBULATE. REFUSES LEG PUMPS AND GAIT BELT. NEUTROPENIC ISOLATION. NEGATIVE C.DIFF. NEW IV SITE OBTAINED LAST NIGHT TO RIGHT FOREARM. Follow up:
[2016-10-25 05:38] LABS: HEMATOCRIT 26.1 % (30.0-46.0); HEMOGLOBIN 8.5 g/dL (10.0-15.0); MCH 29.3 pg (27.0-34.0); MCHC 32.6 gm/dL (32.0-36.5); MPV 9.8 fl (9.4-12.4); RDW-CV 15.9 % (11.9-14.6)
[2016-10-25 05:40] LABS: PLATELET COUNT 78 K/uL (150-450); WBC 1.5 K/uL (4.0-11.0)
[2016-10-25 05:57] LABS: ANION GAP 13.2 (10.0-19.0); BLOOD UREA NITROGEN 6 mg/dL (6-24); CALCIUM 8.1 mg/dL (8.5-10.5); CHLORIDE 108 mMol/L (96-110); CO2 24 mMol/L (22-32); CREATININE 0.7 mg/dL (0.5-1.1); ESTIMATED GFR (MDRD EQUATION) > 60; POTASSIUM 3.2 mMol/L (3.7-5.1); SODIUM 142 mMol/L (135-145)
[2016-10-25 07:21] LABS: ABSOLUTE NEUTROPHIL CT (ANC) 0.2 K/uL (1.8-7.8); BANDED NEUTROPHILS % 2 %; MONOCYTE # 0.2 K/uL (0.0-1.0); SEGMENTED NEUTROPHIL # 0.2 K/uL (1.8-7.8); SEGMENTED NEUTROPHIL % 12 %
[2016-10-25 07:22] LABS: LYMPHOCYTE % 63 %
--- NOTE | 2016-10-25 15:56 | NUR ---
Significant Event: PT ALERT AND ORIENTED. VSS- HRs SLIGHTLY TACHY- ON RA, AFEBRILE. AMBULATES WITH SBA, WALKER. DAILY WT. REMAINS IN NEUTROPENIC ISOLATION. TOLERATING DIET. DENIES PAIN. LLE STILL EDEMATOUS, ELEVATE ON PILLOW. TUBIGRIPS ON DURING DAY, OFF AT NIGHT. ORTHO CONSULT TODAY, DR HERNADEZ HAS NOT BEEN AROUND YET, WAS NOTIFIED THOUGH. RECIEVED 40MEQ KCL PO X1. Follow up: CONTINUE TO MONITOR
--- NOTE | 2016-10-26 04:29 | NUR ---
Significant Event:PT IS A/O X3. PT IS UP W/ SBA AND WALKER. IV TO R FA IS SL EXCEPT FOR INTERMITTENT ZOSYN. PT RATES PAIN @ 3/10 TO R LEG, WORSE WHEN AMBULATING. TUBGRIPS NEED TO BE REAPPLIED TO KEVIN LEGS DURING THE DAY. . PT IN NEUTROPENIC PRECAUTIONS. L LEG TO BE ELEVATED MUCH POSSIBLE. Follow up:
[2016-10-26 05:59] LABS: ANION GAP 12.5 (10.0-19.0); BLOOD UREA NITROGEN 7 mg/dL (6-24); CALCIUM 8.2 mg/dL (8.5-10.5); CHLORIDE 108 mMol/L (96-110); CO2 26 mMol/L (22-32); CREATININE 0.7 mg/dL (0.5-1.1); ESTIMATED GFR (MDRD EQUATION) > 60; POTASSIUM 3.5 mMol/L (3.7-5.1); SODIUM 143 mMol/L (135-145)
--- NOTE | 2016-10-26 11:35 | NUR ---
I have examined the student charting and find it acceptable. ELISEO Reddy
--- NOTE | 2016-10-26 14:21 | NUR ---
A-NUTRITION F/U LLE EDEMATOUS. C-DIFF (-). NEUTRAPENIC PRECAUTIONS LABS: NA 143, K+ 3.5, GLU 97, BUN 7, OPERATIONS ASSISTANT 0.7, ALB 2.5 MEDS: FLORASTOR ADDED DIET RX: REGULAR. PO INTAKE HAS BEEN 75-100% FOR THE MOST PART SINCE LAST F/U. PT CONSUMING >/=65% OF NUTRIENT NEEDS W/CURRENT MEAL SELECTIONS. EST NUTR NEEDS: [id number] KCALS AND 63-75 GM PROTEIN D-AT NUTRITION RISK W/INADEQUATE NUTRIENT INTAKE AT TIMES R/T MEAL SELECTIONS AEB INTAKE RECORDS. I-WILL ADD ENSURE ENLIVE BID TO PROVIDE ADDITIONAL NUTRIENTS M/E-GOAL: PT WILL MEET >/=75% OF NUTRIENT NEEDS PRIOR TO D/C 1)F/U PO INTAKE, SUPPLEMENT, AND POC IN 4-5 DAYS 2)ASSIST NEEDED
--- NOTE | 2016-10-26 16:27 | NUR ---
Significant Event:PT A/O AND COOPERATIVE. C/O LEG PAIN BUT REFUSES PAIN MED. IN NEUTROPENIC PRECAUTIONS FOR AML. RFA IV S/L'D WITH ANTIBIOTICS. UP WITH STANDBY AND WALKER. TUBIGRIPS ON IN DAYTIME AND OFF AT NIGHT. ELEVATE LEFT LEG MUCH POSSIBLE. MRI LEFT LEG SHOWED ONLY TISSUE INFECTION AND NO BONE ENVOLVEMENT. HER IS IN 3202. Follow up:
--- NOTE | 2016-10-27 06:36 | NUR ---
Significant Event: AAOX4. REGULAR DIET. NEUTROPENIC PRECAUTIONS. Q2 TURN, PT ABLE TO SELF REPOSTION WITHOUT DIFFICULTY. PIV TO L)AC. VSS ON RA. DENIED PAIN/NAUSEA THROUGHOUT SHIFT. Follow up:
--- NOTE | 2016-10-27 16:07 | NUR ---
Significant Event: PT A/O. VSS, HRs RUNNING TACHY 103-110, AFEBRILE. IV TO L AC, GOOD BLOOD RETURN. CONTINUES ON INTERMITTENT IV ABX. PLAN IS TO HAVE PICC LINE PLACED SATURDAY. REDNESS AND EDEMA TO L HAND NOTED, WRAPED IN WARM BLANKET PRN. REDNESS AND SWELLING TO LLE. STATES SORE, DENIES ANY NEED FOR PRN PAIN MEDICATIONS. REFUSED SHOWER TODAY. REMAINS IN NEUTROPENIC ISOLATION. DAILY WT. HAS BEEN IN 3202 VISING HER SOME OF SHIFT. TOLERATING REGULAR DIET. AMBULATES WITH SBA, WALKER- REFUSES GAITBELT. Follow up: CONTINUE TO MONITOR
--- NOTE | 2016-10-28 04:21 | NUR ---
Significant Event: Pt alert and oriented. VSS on RA. IV to the L)AC with intermittent antibiotics. PICC line to be placed on saturday. Neutropenic isolation. is on floor. Ambulates standby assist/walker, refused gaitbelt. Elevate L)leg. Ultram given for back pain at 0124. Follow Up: Continue to monitor.
[2016-10-28 05:57] LABS: HEMATOCRIT 22.1 % (30.0-46.0); HEMOGLOBIN 7.3 g/dL (10.0-15.0); MCV 87.7 fl (83.0-98.0); PLATELET COUNT 99 K/uL (150-450); RBC 2.52 M/uL (3.00-5.00); RDW-CV 15.8 % (11.9-14.6); WBC 1.7 K/uL (4.0-11.0)
[2016-10-28 06:20] LABS: CREATININE 0.7 mg/dL (0.5-1.1); ESTIMATED GFR (MDRD EQUATION) > 60
[2016-10-28 07:07] LABS: ABSOLUTE NEUTROPHIL CT (ANC) 0.3 K/uL (1.8-7.8); BANDED NEUTROPHIL # 0.1 K/uL (0.0-0.1); BANDED NEUTROPHILS % 4 %; LYMPHOCYTE # 1.1 K/uL (0.8-4.0); LYMPHOCYTE % 62 %; MONOCYTE # 0.2 K/uL (0.0-1.0); SEGMENTED NEUTROPHIL # 0.2 K/uL (1.8-7.8); SEGMENTED NEUTROPHIL % 11 %
--- NOTE | 2016-10-28 16:16 | NUR ---
Significant Event:VSS.RA.DENIES ANY NEED FOR PAIN MEDS THIS SHIFT.1 ASSIST+WALKER. PLANS FOR PICC LINE PLACEMENT TOMORRROW. Follow up:WILL CONTINUE TO MONITOR PER PLAN OF CARE.
--- NOTE | 2016-10-29 05:08 | NUR ---
Significant Event: Pt alert and oriented. VSS on Ra. IV to the L)AC intermittent antibiotics running. PICC line to be placed possibly today. Neutropenic precautions. Ambulates standby assist/walker, pt refuses to use gaitbelt. Elevate left leg. No complaints of pain or nausea. is pt on floor as well. Follow Up: Continue to monitor.
[2016-10-29 05:41] LABS: HEMATOCRIT 21.5 % (30.0-46.0); MCV 88.8 fl (83.0-98.0); MPV 9.4 fl (9.4-12.4); RBC 2.42 M/uL (3.00-5.00); RDW-CV 15.7 % (11.9-14.6)
[2016-10-29 05:48] LABS: MCH 28.9 pg (27.0-34.0); MCHC 32.6 gm/dL (32.0-36.5); PLATELET COUNT 130 K/uL (150-450); WBC 1.7 K/uL (4.0-11.0)
[2016-10-29 05:51] LABS: ANION GAP 8.4 (10.0-19.0); BLOOD UREA NITROGEN 10 mg/dL (6-24); CALCIUM 8.2 mg/dL (8.5-10.5); CHLORIDE 108 mMol/L (96-110); CO2 29 mMol/L (22-32); CREATININE 0.7 mg/dL (0.5-1.1); ESTIMATED GFR (MDRD EQUATION) > 60; POTASSIUM 3.4 mMol/L (3.7-5.1); SODIUM 142 mMol/L (135-145)
[2016-10-29 07:00] LABS: ABSOLUTE NEUTROPHIL CT (ANC) 0.3 K/uL (1.8-7.8); SEGMENTED NEUTROPHIL # 0.3 K/uL (1.8-7.8); SEGMENTED NEUTROPHIL % 17 %
[2016-10-29 07:01] LABS: BANDED NEUTROPHILS % 1 %; LYMPHOCYTE % 35 %; MONOCYTE # 0.3 K/uL (0.0-1.0)
--- NOTE | 2016-10-29 13:46 | NUR ---
10/29/16: PT REFUSED SHOWER TODAY, SAYS IT WAS DONE IN THE EVENING 10/28/16.
--- NOTE | 2016-10-29 17:39 | NUR ---
Significant Event: PT A/O. VSS, HRs STILL RUNNING TACHY, AFEBRILE. CONTINUES ON IV ABX. PICC LINE PLACED TO DERIC, SALINE LOCK TO L AC. REMAINS IN NEUTROPENIC ISOLATION. AMBULATES WITH SBA, GAITBELT. CONSULT FOR THERPAY TODAY. IS IN 3202, THEY VISIT EACHOTHER OFTEN. LLE EDEMA, REDNESS MARKED. SOME EDEMA STILL NOTED TO L HAND. ALSO SOME EDEMA TO BOTTOM R FOOT. Follow up:NEUTROPENIC, CONTINUE TO MONITOR
--- NOTE | 2016-10-30 02:53 | NUR ---
SIGNIFICANT EVENT: Patient alert & oriented. Neutropenic precautions. VSS on RA - some tachypnea. PICC to R) UE, single lumen - dressing changed d/t bloody drainage, loose. Good blood return, measurements above HOB. PT tomorrow. 1PA walker. L) lower leg still has large reddened, edematous area. Intermittent IV antibiotics to PICC. Cooperative with cares.
[2016-10-30 05:58] LABS: HEMATOCRIT 20.9 % (30.0-46.0); MCH 29.2 pg (27.0-34.0); MCHC 33.5 gm/dL (32.0-36.5); MCV 87.1 fl (83.0-98.0); MPV 9.1 fl (9.4-12.4); PLATELET COUNT 151 K/uL (150-450); RDW-CV 15.8 % (11.9-14.6)
[2016-10-30 06:01] LABS: WBC 1.6 K/uL (4.0-11.0)
[2016-10-30 06:15] LABS: ANION GAP 14.4 (10.0-19.0); BLOOD UREA NITROGEN 10 mg/dL (6-24); CALCIUM 8.6 mg/dL (8.5-10.5); CHLORIDE 107 mMol/L (96-110); CO2 26 mMol/L (22-32); CREATININE 0.7 mg/dL (0.5-1.1); ESTIMATED GFR (MDRD EQUATION) > 60; POTASSIUM 3.4 mMol/L (3.7-5.1); SODIUM 144 mMol/L (135-145)
[2016-10-30 06:39] LABS: ABSOLUTE NEUTROPHIL CT (ANC) 0.3 K/uL (1.8-7.8); BANDED NEUTROPHILS % 1 %; LYMPHOCYTE % 62 %; MONOCYTE # 0.3 K/uL (0.0-1.0); SEGMENTED NEUTROPHIL # 0.2 K/uL (1.8-7.8); SEGMENTED NEUTROPHIL % 15 %
--- NOTE | 2016-10-30 13:12 | NUR ---
A-NUTRITION F/U NEUTRAPENIC PRECAUTIONS. L)LOWER LEG HAS LARGE, REDDENED, EDEMATOUS AREA. 10/29-PICC PLACED LABS: NA 144, K+ 3.4, GLU 93, BUN 10, MAITRE D 0.7, ALB 2.5 10/28 CRP 2.05; DOWN FROM 4.21 MEDS: CLINDAMYCIN STARTED DIET RX: REGULAR W/ENSURE ENLIVE BID. PO INTAKE 75-100% FOR THE MOST PART. MEAL SELECTIONS HAVE IMPROVED. EST NUTR NEEDS: [id number] KCALS AND 63-75 GM PROTEIN D-NOT AT NUTRITION RISK; NUTRITION PROBLEM RESOLVED I-CONTINUE W/ENSURE ENLIVE BID AT B/D TO MAINTAIN NUTRITION STATUS M/E-GOAL: PO INTAKE >/=75% FOR DURATION OF ADMIT 1)F/U PO INTAKE, SUPPLEMENT, AND POC IN 5-7 DAYS 2)ASSIST NEEDED
--- NOTE | 2016-10-30 16:45 | NUR ---
Significant Event: PT A/O. VSS ON RA, AFEBRILE. PICC TO DERIC, CONTINUES ON IV ABX. LLE EDEMA, REDNESS. REMAINS IN NEUTROPENIC ISOLATION. PT IS DAILY WT. TOLERATING DIET. AMBULATES WITH SBA, WALKER. PHYSICAL THERAPY WORKING WITH. IS IN ROOM 3202. OFTEN GOES TO VISIT HIM OR HIM TO VISIT HER. Follow up: CONTINUE TO MONITOR
[2016-10-31 04:44] LABS: ANION GAP 11.9 (10.0-19.0); BLOOD UREA NITROGEN 10 mg/dL (6-24); CALCIUM 8.5 mg/dL (8.5-10.5); CHLORIDE 109 mMol/L (96-110); CO2 26 mMol/L (22-32); CREATININE 0.7 mg/dL (0.5-1.1); POTASSIUM 3.9 mMol/L (3.7-5.1); SODIUM 143 mMol/L (135-145)
[2016-10-31 04:47] LABS: ESTIMATED GFR (MDRD EQUATION) > 60
[2016-10-31 04:58] LABS: HEMATOCRIT 21.2 % (30.0-46.0); MCH 29.5 pg (27.0-34.0); MCHC 33.5 gm/dL (32.0-36.5); PLATELET COUNT 163 K/uL (150-450); RBC 2.41 M/uL (3.00-5.00); RDW-CV 15.8 % (11.9-14.6)
[2016-10-31 04:59] LABS: HEMOGLOBIN 7.1 g/dL (10.0-15.0); WBC 1.6 K/uL (4.0-11.0)
--- NOTE | 2016-10-31 05:03 | NUR ---
Significant Event: Patient is alert and oriented x 3. VSS on room air. Up with 1 assist and walker. Tubigrips to bilateral legs on during the day, off at night. Small BM this shift. PICC to right upper arm, receiving intermittent antibiotics. Left forearm IV, saline locked. On neutropenic precautions. Denies any pain. Patient is pleasant and cooperative with cares. Follow up:
[2016-10-31 05:38] LABS: ABSOLUTE NEUTROPHIL CT (ANC) 0.3 K/uL (1.8-7.8); BANDED NEUTROPHIL # 0.1 K/uL (0.0-0.1); BANDED NEUTROPHILS % 8 %; LYMPHOCYTE # 0.9 K/uL (0.8-4.0); LYMPHOCYTE % 57 %; MONOCYTE # 0.1 K/uL (0.0-1.0); SEGMENTED NEUTROPHIL # 0.2 K/uL (1.8-7.8); SEGMENTED NEUTROPHIL % 11 %
--- NOTE | 2016-10-31 15:56 | NUR ---
Significant Event: Patient is alert and oriented x3. VSS- pulse does run tachy, we are to notify MD if >120. Highest for me was 113. PICC line in the right upper arm, single lumen, good blood return. IV ABX. L)FA IV as well, SL. Up with SBA and walker. Refusing the tubigrip sock on the L)leg as she states it hurts to much to roll it up and down because so many people look at my leg in day, she states she will wear it at night. Denies pain. ID to see today. BM's today. Neutropenic precautions. Cooperative with cares.
--- NOTE | 2016-11-01 04:22 | NUR ---
Significant Event: Patient is alert and oriented x 3. VSS on room air. To call if HR >120. Highest rate was 109. Up with 1 assist and walker. Tubigrip to left lower extremity. Voiding well. BM x 1 this shift. Denies any pain. Single lumen PICC to right upper arm, good blood return. Receiving intermittent antibiotics. Left forearm IV, saline locked. In neutropenic precautions. Patient is pleasant and cooperative with cares. Follow up:
[2016-11-01 12:05] LABS: HEMATOCRIT 20.4 % (30.0-46.0); HEMOGLOBIN 6.7 g/dL (10.0-15.0)
--- NOTE | 2016-11-01 15:42 | NUR ---
Significant Event: Patient is alert and oriented x3. Very tired and pale today. Stat H&H drawn around 1100- it was 6.7. Type and screen completed and then typed and cross for 1 unit of blood. Blood is currently infusing. Tylenol and Benadryl were given pre-treatment. Lasix 40mg IV x1 was given. PICC to the right upper arm, single lumen, good blood return. Other IV to the L)FA. Tubi-tapper helper applied to the L)Lower extermity, refuses on the right. Showered this am. Denies pain or nausea. Call if HR >120. Has been in the one-teens. On RA. Lung sounds have fine crackles in the middle and lower lobe(s). Tolerating a regular diet. Neutropenic precautions. Aloe QID to bottom. Cooperative with cares.
[2016-11-01 20:14] LABS: HEMOGLOBIN 8.4 g/dL (10.0-15.0)
[2016-11-01 20:17] LABS: HEMATOCRIT 24.9 % (30.0-46.0)
[2016-11-02 06:32] LABS: ANION GAP 10.6 (10.0-19.0); BLOOD UREA NITROGEN 14 mg/dL (6-24); CALCIUM 8.4 mg/dL (8.5-10.5); CHLORIDE 107 mMol/L (96-110); CO2 28 mMol/L (22-32); CREATININE 0.7 mg/dL (0.5-1.1); ESTIMATED GFR (MDRD EQUATION) > 60; POTASSIUM 3.6 mMol/L (3.7-5.1); SODIUM 142 mMol/L (135-145)
[2016-11-02 06:45] LABS: HEMATOCRIT 24.3 % (30.0-46.0); HEMOGLOBIN 8.3 g/dL (10.0-15.0); MCHC 34.2 gm/dL (32.0-36.5); MPV 9.1 fl (9.4-12.4); RBC 2.86 M/uL (3.00-5.00); RDW-CV 16.2 % (11.9-14.6); WBC 2.5 K/uL (4.0-11.0)
[2016-11-02 06:49] LABS: PLATELET COUNT 226 K/uL (150-450)
--- NOTE | 2016-11-02 07:08 | NUR ---
Significant Event: Pt 1 assist with walker, gait belt. Feels better after recieving 1 unit PRBC's last night. VSS, afebrile. Tele called with pt having 12 seconds SVT's x 3, printed strips and placed in front of chart. Picc line to right arm, limb alert on. Cont to monitor. Follow up: Cont to monitor.
[2016-11-02 08:00] LABS: ABSOLUTE NEUTROPHIL CT (ANC) 0.5 K/uL (1.8-7.8); BANDED NEUTROPHIL # 0.1 K/uL (0.0-0.1); BANDED NEUTROPHILS % 3 %; LYMPHOCYTE # 1.8 K/uL (0.8-4.0); LYMPHOCYTE % 71 %; MONOCYTE # 0.2 K/uL (0.0-1.0); SEGMENTED NEUTROPHIL # 0.4 K/uL (1.8-7.8); SEGMENTED NEUTROPHIL % 15 %
--- NOTE | 2016-11-02 17:44 | NUR ---
SIGNIFICANT EVENT: PT A/O. VSS ON RA, AFEBRILE. REMAINS IN NEUTROPENIC ISOLATION. PICC TO DERIC. TELEMETRY ON WITH NO CALLS. CONTINUES ON IV ABX. AMBULATES WITH SBA, GAITBELT. TOLERATING REGULAR DIET. ACCURATE I/O, DAILY WT. TUBIGRIP ON RLE, TO BE OFF AT HS. TUBIGRIP TO LLE TO BE ON AT HS, OFF IN AM. RLE EDEMA, REDNESS. DENIES PAIN. FAMILY UP TO VISIT THIS SHIFT. FOLLOW UP: TUBIGRIP, CONTINUE TO MONITOR
[2016-11-03 06:31] LABS: HEMATOCRIT 24.9 % (30.0-46.0); HEMOGLOBIN 8.4 g/dL (10.0-15.0); MCH 28.9 pg (27.0-34.0); MCHC 33.7 gm/dL (32.0-36.5); MCV 85.6 fl (83.0-98.0); MPV 9.3 fl (9.4-12.4); PLATELET COUNT 246 K/uL (150-450); RBC 2.91 M/uL (3.00-5.00); RDW-CV 16.2 % (11.9-14.6); WBC 2.4 K/uL (4.0-11.0)
[2016-11-03 06:59] LABS: ABSOLUTE NEUTROPHIL CT (ANC) 0.5 K/uL (1.8-7.8); LYMPHOCYTE # 1.4 K/uL (0.8-4.0); LYMPHOCYTE % 60 %; MONOCYTE # 0.3 K/uL (0.0-1.0); SEGMENTED NEUTROPHIL # 0.5 K/uL (1.8-7.8); SEGMENTED NEUTROPHIL % 19 %
--- NOTE | 2016-11-03 07:35 | NUR ---
SIGNIFICANT EVENT: Patient alert & oriented. Tachycardic, other VSS on RA. Tele called x2 - 32 beats SVT, asymptomatic. Patient rested well through night. Intermittent IV antibiotics to R) Anterior upper arm PICC. SBA with walker. Strict I/O. Regular diet. 430 PO and 340 IV in. 1550 out with small BM. Cooperative with cares.
--- NOTE | 2016-11-03 15:36 | NUR ---
Significant Event: Pt denies pain. Up with 1 assist to recliner. PICC to right arm. Continues in neutropenic precautions. Left lower leg pink/purple, healing. Continues on IVATB. Follow up:
[2016-11-04 01:30] LABS: ANION GAP 12.6 (10.0-19.0); BLOOD UREA NITROGEN 11 mg/dL (6-24); CALCIUM 8.5 mg/dL (8.5-10.5); CHLORIDE 108 mMol/L (96-110); CO2 25 mMol/L (22-32); CREATININE 0.6 mg/dL (0.5-1.1); ESTIMATED GFR (MDRD EQUATION) > 60; MAGNESIUM 2.2 mg/dL (1.3-2.6); POTASSIUM 4.6 mMol/L (3.7-5.1); SODIUM 141 mMol/L (135-145)
--- NOTE | 2016-11-04 02:56 | NUR ---
SIGNIFICANT EVENT: Patient alert & oriented. SBA walker. Tele called x2 with runs of SVT (6 and 13 beats) - calls were at 2342 and 0030. MD notified. BMP and Mag now order. BID PO lopressor increased to 50 mg - hold for SBP <100 or HR<60. PRN order for IV lopressor 2.5 mg q4h PRN for HR >110, hold for SBP<100. PICC would not flush at 1999, cathflo ordered and given - flushes well with good Blood return. Potassium was 4.6 and Mag 2.1. Cooperative with cares.
[2016-11-04 06:08] LABS: ANION GAP 11.3 (10.0-19.0); BLOOD UREA NITROGEN 11 mg/dL (6-24); CALCIUM 8.5 mg/dL (8.5-10.5); CHLORIDE 108 mMol/L (96-110); CO2 26 mMol/L (22-32); CREATININE 0.6 mg/dL (0.5-1.1); ESTIMATED GFR (MDRD EQUATION) > 60; POTASSIUM 4.3 mMol/L (3.7-5.1); SODIUM 141 mMol/L (135-145)
--- NOTE | 2016-11-04 15:48 | NUR ---
Significant Event: Pt denies pain. Left leg continues to red/purple. Picc to right arm. Tele on, no calls. Continues in neutropenic isolation. Follow up:
--- NOTE | 2016-11-05 05:04 | NUR ---
SIGNIFICANT EVENT: Patient alert & oriented, c/o being very tired but unable to rest. Assessment vitals stable on RA; however, tele calls x4 with runs of 19 to 36 beats of SVT with HR from 133 to 164 - asymptomatic otherwise. Hospitalist notified. 5 mg IVP lopressor given x2, last at 0431. AM dose of 75 mg lopressor given at approx 0515. PICC to R) upper arm infusing intermittent antibiotics. Denies pain. Neutropenic precautions. Regular diet. SBA to 1PA walker. Pleasant and cooperative with cares.
[2016-11-05 05:13] LABS: ANION GAP 12.7 (10.0-19.0); BLOOD UREA NITROGEN 11 mg/dL (6-24); CALCIUM 8.8 mg/dL (8.5-10.5); CHLORIDE 107 mMol/L (96-110); CO2 25 mMol/L (22-32); CREATININE 0.5 mg/dL (0.5-1.1); ESTIMATED GFR (MDRD EQUATION) > 60; POTASSIUM 3.7 mMol/L (3.7-5.1); SODIUM 141 mMol/L (135-145)
[2016-11-05 05:43] LABS: MCH 28.7 pg (27.0-34.0); MCHC 33.2 gm/dL (32.0-36.5); MCV 86.6 fl (83.0-98.0); MPV 9.3 fl (9.4-12.4); PLATELET COUNT 241 K/uL (150-450); RBC 2.54 M/uL (3.00-5.00); RDW-CV 15.8 % (11.9-14.6); WBC 2.1 K/uL (4.0-11.0)
[2016-11-05 05:45] LABS: HEMOGLOBIN 7.3 g/dL (10.0-15.0)
[2016-11-05 06:42] LABS: ABSOLUTE NEUTROPHIL CT (ANC) 0.5 K/uL (1.8-7.8); LYMPHOCYTE # 1.3 K/uL (0.8-4.0); LYMPHOCYTE % 61 %; MONOCYTE # 0.3 K/uL (0.0-1.0); SEGMENTED NEUTROPHIL # 0.5 K/uL (1.8-7.8); SEGMENTED NEUTROPHIL % 23 %
--- NOTE | 2016-11-05 14:44 | NUR ---
NUT F/U. PT REMAINS AT LOW RISK. EATING 50-100% OF REGULAR DIET W/ ENSURE BID. NO NUTRITION RELATED DIAGNOSIS IDENTIFIED AT THIS TIME. WILL ASSIST NEEDED.
--- NOTE | 2016-11-05 19:28 | NUR ---
Significant Event: Patient A/O x3. VS stable on RA. Patient 1 assist gaitbelt and walker transfer. No complains of pain this shift. Patient has equal strength to extremities. PICC to R) upper arm SL with intermittent antibiotics. Patient up ambulates with therapy x2 this shift. On neutropenic precautions. Patient on Tele. Patient had 48 and 53 beats of SVT at [address] Dickerson called. Cardiology consult. No further calls from tele. Patient pleasant and cooperative with cares this shift. Follow up:
--- NOTE | 2016-11-06 05:04 | NUR ---
Significant Event:PT IS A/O X3. PT IS A SBA TO BATHROOM W/ WALKER. PT ON RA, TELE, PT HAVING MULTIPLE RUNS OF SVT, LONGEST WAS 16 WITH 68 BEATS. PT IS NPO FOR CODI SCAN THIS AM, PT ALSO GETTING ROUTINE EKGS AND LAB DRAWS FOR CARDIAC ENZYMES. PT IS IN NEUTROPENIC PRECAUTIONS. PICC TO R UPPER ARM IS SL EXCEPT FOR INT ABX. L LEG STILL REDDENED TO LOWER EXTREMITY. PT HR WILL SPIKE TO 150'S OTHERWISE 80'S TO LOW 100'S, ASYMPTOMATIC DURING EPISODES. Follow up:
[2016-11-06 06:01] LABS: HEMATOCRIT 22.3 % (30.0-46.0); MCH 28.1 pg (27.0-34.0); MCHC 31.8 gm/dL (32.0-36.5); MCV 88.1 fl (83.0-98.0); PLATELET COUNT 253 K/uL (150-450); RBC 2.53 M/uL (3.00-5.00); RDW-CV 15.7 % (11.9-14.6)
[2016-11-06 06:04] LABS: CREATININE 0.6 mg/dL (0.5-1.1); ESTIMATED GFR (MDRD EQUATION) > 60
[2016-11-06 06:10] LABS: HEMOGLOBIN 7.1 g/dL (10.0-15.0)
[2016-11-06 06:51] LABS: ABSOLUTE NEUTROPHIL CT (ANC) 0.2 K/uL (1.8-7.8); BANDED NEUTROPHILS % 1 %; LYMPHOCYTE # 1.6 K/uL (0.8-4.0); LYMPHOCYTE % 79 %; MONOCYTE # 0.1 K/uL (0.0-1.0); SEGMENTED NEUTROPHIL # 0.2 K/uL (1.8-7.8); SEGMENTED NEUTROPHIL % 10 %
--- NOTE | 2016-11-06 17:51 | NUR ---
Significant Event: Patient is alert and oriented x3. VSS- pulse has been running in the low 100's. On Room Air. No runs of SVT that I am aware of. Tele on. Had kin scan/stress test this morning. PICC in the right upper arm, SL. Dressing still needs changed. Neutropenic precautions. Tubi-truck leasing manager on the right lower leg. It will need to be removed at HS and then applied to the left leg at HS per patient request. Denies pain. Follow Up: PICC line dressing change
[2016-11-07 05:38] LABS: CREATININE 0.6 mg/dL (0.5-1.1); ESTIMATED GFR (MDRD EQUATION) > 60
--- NOTE | 2016-11-07 05:40 | NUR ---
Significant Event:pt is a/o x3. picc to r upper arm dressing changed this am. good blood return. on tele w/ numerous calls for runs of svt. did administer one extra dose of metoperol 75mg po to help slow down episodes. wears tubegrip to l leg at night. pt is a sba w/ walker. Follow up:
[2016-11-07 05:48] LABS: HEMATOCRIT 21.1 % (30.0-46.0); MCH 28.9 pg (27.0-34.0); MCHC 33.2 gm/dL (32.0-36.5); MCV 87.2 fl (83.0-98.0); MPV 8.8 fl (9.4-12.4); PLATELET COUNT 246 K/uL (150-450); RBC 2.42 M/uL (3.00-5.00); RDW-CV 15.6 % (11.9-14.6)
[2016-11-07 06:18] LABS: ABSOLUTE NEUTROPHIL CT (ANC) 0.4 K/uL (1.8-7.8); BANDED NEUTROPHIL # 0.2 K/uL (0.0-0.1); BANDED NEUTROPHILS % 8 %; LYMPHOCYTE # 1.1 K/uL (0.8-4.0); LYMPHOCYTE % 57 %; MONOCYTE # 0.3 K/uL (0.0-1.0); SEGMENTED NEUTROPHIL # 0.2 K/uL (1.8-7.8); SEGMENTED NEUTROPHIL % 11 %
--- NOTE | 2016-11-07 16:16 | NUR ---
SUPPORITVE VISIT: SPOKE TO PATIENT SHE TELLS ME THAT SHE IS NOT FEELING WELL TODAY. SHE IS RESTING IN BED AND VISITING WITH HER SON AT THE BEDSIDE. WILL CONT TO FOLLOW NEEDED.
--- NOTE | 2016-11-07 19:14 | NUR ---
Significant Event: Patient is alert and oriented x3. VSS and on RA. Neutropenic precautions. Lasix given x1. Will be receiving 1 unit of blood. Hgb was 7.0 Had to use activase in the PICC x1. Good blood return now. IV abx changed. Follow up with ID in 1 week. EKG this am. EKG every AM. Had 2 runs of SVT today. Tele on. Up with SBA. Denies pain. Voiding adequately. Cooperative with cares. More tired today.
--- NOTE | 2016-11-08 04:28 | NUR ---
Significant Event: Pt is alert and oriented. VSS on RA. Picc to the R)upperarm. 1 unit of blood given with no reaction. Intermittent antibiotics. Ambulates 1 assist/walker. TELE call at 0050 for run on SVT. Daily weight. Pt slept most of shift. Follow Up: Continue to monitor.
[2016-11-08 05:44] LABS: ANION GAP 11.4 (10.0-19.0); BLOOD UREA NITROGEN 12 mg/dL (6-24); CALCIUM 8.4 mg/dL (8.5-10.5); CHLORIDE 103 mMol/L (96-110); CO2 28 mMol/L (22-32); CREATININE 0.7 mg/dL (0.5-1.1); ESTIMATED GFR (MDRD EQUATION) > 60; POTASSIUM 3.4 mMol/L (3.7-5.1); SODIUM 139 mMol/L (135-145)
[2016-11-08 05:53] LABS: HEMOGLOBIN 8.6 g/dL (10.0-15.0); MCH 29.1 pg (27.0-34.0); MCHC 33.9 gm/dL (32.0-36.5); MCV 85.8 fl (83.0-98.0); MPV 9.1 fl (9.4-12.4); PLATELET COUNT 243 K/uL (150-450); RBC 2.96 M/uL (3.00-5.00); RDW-CV 15.6 % (11.9-14.6); WBC 2.5 K/uL (4.0-11.0)
[2016-11-08 05:54] LABS: HEMATOCRIT 25.4 % (30.0-46.0)
[2016-11-08 07:24] LABS: ABSOLUTE NEUTROPHIL CT (ANC) 0.8 K/uL (1.8-7.8); BANDED NEUTROPHIL # 0.2 K/uL (0.0-0.1); BANDED NEUTROPHILS % 8 %; LYMPHOCYTE # 1.3 K/uL (0.8-4.0); MONOCYTE # 0.1 K/uL (0.0-1.0); SEGMENTED NEUTROPHIL # 0.6 K/uL (1.8-7.8)
[2016-11-08 07:25] LABS: LYMPHOCYTE % 40 %; SEGMENTED NEUTROPHIL % 22 %
--- NOTE | 2016-11-08 16:08 | NUR ---
Significant Event: Patient is alert and oriented x3. VSS and placed on 2 liters at the beginning of the shift due to low saturations, now is down to 1. Very very dry wheezy cough and gets short of breath easily. X-ray completed. 40meq of potassium PO given for a potassium of 3.4. PICC to the right upper arm, good blood return. Denies pain and denies having any furthur nausea. Tele on, no calls for SVT. Crackles noted in the bases of her lungs. Very tired today and pale. She states she does not feel well. Cooperative with cares. Did brush teeth and changed gown but refused a shower today.
--- NOTE | 2016-11-09 03:55 | NUR ---
Significant Event: Pt is alert and oriented. VSS on 1L of 02. PICC to the R)UA with good blood return. TELE called at 2309 with reports of pt having multiple runs on SVT highest at [address] Dickerson ordered one time dose of lopressor 2.5. Pt has been very tired this shift and slept most of night. Ambulates 1 assist/gaitbelt/walker. No complaints of pain or nausea. Follow Up: Continue to monitor.
[2016-11-09 05:25] LABS: CREATININE 0.6 mg/dL (0.5-1.1); ESTIMATED GFR (MDRD EQUATION) > 60
--- NOTE | 2016-11-09 14:46 | NUR ---
Received message from Jim Aguiar APRN that patient will likely get discharged to home tomorrow and would benefit from Home Health to follow at home. Talked with patient, spouse and daughter at bedside about this, they are agreeable to [facility] to follow at home, they currently follow pt at home. Let them know HH would likely call them Saturday to set up time to visit next week. I put face to face order sheet on chart and phone and fax number to [facility] for nurses to fax face to face and dc orders to. I called [facility] and faxed referral, they will call pt early next week to set up time to go visit, likely Saturday. Told them that was fine.
--- NOTE | 2016-11-09 16:19 | NUR ---
PATIENT WAS ON 2L NC SATS 96-100%, PT PLACED ON ROOM AIR SAT 89-93%, PT WALKED ON ROOM AIR AND SATS CONTINUED TO BE 89-93%, PT WASN'T WALKED WITH 02 SHE DID FINE WITHOUT IT. NOTE WROTE IN PROGRESS NOTES
--- NOTE | 2016-11-09 16:24 | NUR ---
Significant Event: PT AO. VSS, AFEBRILE. SATS 88% RA, 1-2L O2. RT DID AMBULATORY O2 EVAL. TELEMETRY ON, NO CALLS THIS SHIFT. PICC TO DERIC, SALINE LOCKED. ABX CHANGED TO PO. PT/OT WORKING WITH. AMBULATES WITH SBA, WALKER. DENIES PAIN. LLE EDEMATOUS, SOME REDNESS. IMPROVING GREATLY. REMAINS IN NEUTROPENIC ISOLATION. FAMILY UP TO VISIT TODAY. PLAN IS PROBABLE DC TOMORROW. Follow up: CONTINUE TO MONITOR
--- NOTE | 2016-11-10 04:58 | NUR ---
Significant Event: Pt is alert and oriented. VSS on 1L of , to keep sats above 90. TELE with no calls. PICC to R)upper arm. Ambulates 1 assist with a gaitbelt/walker. Pt refuses gaitbelt at times. Bed alarm on. Follow Up: Possible discharge today. Continue to monitor.
[2016-11-10 09:54] LABS: CREATININE 0.6 mg/dL (0.5-1.1); ESTIMATED GFR (MDRD EQUATION) > 60
[2016-11-10] MEDS ORDERED: LOPRESSOR50 MG PO (11:46)
[2016-11-10] MEDS ORDERED: FLORASTOR250 MG PO (11:48)
[2016-11-10] MEDS ORDERED: MINOCIN100 MG PO (11:48)
[2016-11-10] MEDS ORDERED: ULTRAM50 MG PO (11:50)
--- NOTE | 2016-11-10 14:03 | NUR ---
A&O. VSS. 02 BOARDERLINE AT 88-90% ON RA. LS CLEAR/DIM. 1PA. DERIC PICC LEFT IN FOR CHEMO. BM 11/09. VD'S WELL. RLE SLIGHT RED/PURPLE. PO ATBX. REVIED DC INSTRUCTIONS, PT TO MAKE FOLLOW UP APT X3, ANSWERED QUESTIONS. GAVE SHOWER COVERS FOR PICC. PT TAKEN TO LOBBY VIA WC WITH AND SISTER IN PRIVATE VEHICLE HOME
--- NOTE | 2016-11-12 16:32 | NUR ---
Talked with Liliya at [facility] and faxed pt H&P again, could not find that in paperwork I faxed to them, they got the information needed to admit pt to this week.
--- NOTE | 2016-11-14 14:57 | NUR ---
Post hospitalization follow up call made to patient. Patient reports that she has an appointment with an infectious disease doctor tomorrow, November [address] Trevino and Dr. Rasmussen on Saturday, November 19. Reports that Home Health is following her and she is feeling much better. Reports that her hospitalization went well and she has no concerns.
[2016-11-21] MEDS ORDERED: NORCO 5-325 TA1 EACH PO (08:19)
== END 2016-11-10 12:55 | disposition disaster alternative care site (69) | DRG 602 ==
LOC: GMSU 13:59
PROVIDERS: Family Medicine; Internal Medicine; Internal Medicine Hematology & Oncology; Nurse Practitioner Family; Physician Assistant; ADMIT Internal Medicine
PROC: 02HV33Z Insertion of Infusion Device into Superior Vena Cava, Percutaneous Approach (ICD-10-PCS; principal; 2016-10-29)
PROC: 30233N1 Transfusion of Nonautologous Red Blood Cells into Peripheral Vein, Percutaneous Approach (ICD-10-PCS; 2016-11-01)
PROC: 30233N1 Transfusion of Nonautologous Red Blood Cells into Peripheral Vein, Percutaneous Approach (ICD-10-PCS; 2016-11-07)
DX: L03.116 Cellulitis of left lower limb (principal); D61.810 Antineoplastic chemotherapy induced pancytopenia; J96.01 Acute respiratory failure with hypoxia; E44.0 Moderate protein-calorie malnutrition; C92.Z0 Other myeloid leukemia not having achieved remission; I50.32 Chronic diastolic (congestive) heart failure; D70.1 Agranulocytosis secondary to cancer chemotherapy; I47.1 Supraventricular tachycardia; D63.0 Anemia in neoplastic disease; Z86.718 Personal history of other venous thrombosis and embolism; Z87.891 Personal history of nicotine dependence; E87.6 Hypokalemia; R19.7 Diarrhea, unspecified; M60.9 Myositis, unspecified; T45.1X5A Adverse effect of antineoplastic and immunosuppressive drugs, initial encounter
CPT/HCPCS: A9270; A9500; C1751; J0280; J0696; J1200; J1644; J1940; J2185; J2543; J2785; J2997; J3370; J7030; J7040; J7050; P9040; P9058; Q0162; Q9967

== ENCOUNTER → 2016-11-21 | Day surgery (SDC) | payer MEDICARE, OTHER ==
[~2016-11-21] VITALS: Ht 157.5 cm; Wt 61.2 kg
[~2016-11-21] MED LIST changes: +FLORASTOR250 MG PO; +LOPRESSOR50 MG PO; +MINOCIN100 MG PO; +NORCO 5-325 TA1 EACH PO; +THERAGRAN-M1 TAB PO; +ULTRAM50 MG PO; +ZOFRAN8 MG PO
--- NOTE | ~2016-11-21 | OR ---
PATIENT'S NAME: JOSHUA RODRIGUEZ [facility] AGE: 86 Y [address] ROOM: [place] [address] LOCATION: [facility] [place] ADMIT DATE: 11/21/2016 OR/Procedure Report DISCHARGE DATE: FAMILY PHYSICIAN: Cheyenne Rasmussen MD ATTENDING PHYSICIAN: Jena Jeong SURGEON: Jena Jeong MD CANDLE WICKER: DATE OF PROCEDURE: 11/21/2016 PREOPERATIVE DIAGNOSES: 1. Myelogenous leukemia. 2. Need for chronic IV access. POSTOPERATIVE DIAGNOSES: 1. Myelogenous leukemia. 2. Need for chronic IV access. PROCEDURE PERFORMED: Insertion of a left subclavian vein-based, low-profile power port. ANESTHESIA: IV sedation with 14 mL of 1% Xylocaine. SPECIMENS: None. ESTIMATED BLOOD LOSS: 20 mL. INDICATIONS: The patient is an 86-year-old young lady referred by Dr. Trevino, treating for leukemia as well as cellulitis. She has a PICC line in place after successful treatment of her cellulitis and now needs a port for chronic IV access. Her platelet counts are 169,000. She received 2 units of blood yesterday for hemoglobin of 7.1. We explained the procedure, benefits, and risks. DESCRIPTION OF PROCEDURE: After informed consent, the patient was taken to the operating room. After IV sedation, the anterior left chest and neck were prepped and draped into a sterile field. We had a time-out. We identified the patient, planned procedure. We noted she had a PICC line in her left basilic vein access. We placed the patient in Trendelenburg position, injected local anesthetic, accessed the left subclavian vein on the first pass without difficulty. We confirmed with fluoro the placement of the wire and the superior vena cava next to the PICC line. We then injected local anesthetic in the anterior left chest, made a subcutaneous pocket, top of the pectoralis fascia large enough to place the port hub. Next, over the wire introducer and sheath were placed followed by removal of the wire introducer through the sheath and we placed the tubing into the superior vena cava under PATIENT'S NAME: JOSHUA RODRIGUEZ [facility] AGE: 86 Y [address] ROOM: [place] [address] LOCATION: [facility] [place] ADMIT DATE: 11/21/2016 OR/Procedure Report DISCHARGE DATE: FAMILY PHYSICIAN: Cheyenne Rasmussen MD ATTENDING PHYSICIAN: Jena Jeong fluoro, positioned it right above the right atrium. We split the sheath to remove it. We tunneled the tubing down to the port, where it was connected. The port was secured down with 3-0 silk. Subcutaneous tissue closed with 3-0 Vicryl and the skin closed with subcuticular 4-0 Vicryl. We viewed with fluoro the placement of the tubing. It was correct. No complicating features. We left a needle in place, had a return of venous blood. It was then flushed with saline and hep-locked. Steri-Strips and sterile dressings applied. The patient tolerated the procedure well, transferred to recovery room in stable condition. JENA JEONG MD WTS/modl /[id number] d: 11/21/16 1003 t: 12/03/16 0857, OPERATIVE SUMMARY
== END | disposition disaster alternative care site (69) ==
LOC: GPOC 11-20 14:00 → GSDC 05:53
PROC: 05H533Z Insertion of Infusion Device into Right Subclavian Vein, Percutaneous Approach (ICD-10-PCS; principal; 2016-11-21)
PROC: B516ZZA Fluoroscopy of Right Subclavian Vein, Guidance (ICD-10-PCS; 2016-11-21)
DX: C92.00 Acute myeloblastic leukemia, not having achieved remission (principal); D47.3 Essential (hemorrhagic) thrombocythemia; Z88.5 Allergy status to narcotic agent; Z98.41 Cataract extraction status, right eye; Z98.42 Cataract extraction status, left eye; Z98.890 Other specified postprocedural states
CPT/HCPCS: C1788; J0690; J1642; J2001; J7120

== ENCOUNTER → 2017-01-09 | Outpatient (CLI) | payer MEDICARE, OTHER ==
--- NOTE | ~2017-01-09 | ENPV ---
Vascular Lower Extremities DVT Study Procedure Demographics Patient Name JOSHUA RODRIGUEZ Date of Study 01/09/2017 Patient Number [id number] Gender Female Date of 1930 Age 86 Visit Number [id number] Height Accession Number [id number] Weight Room Number BSA BMI Referring Uriel Rinaldi MD Interpreting Manoj Morales MD Physician Grady Barnes MD Physician Physician Ordering Uriel Rinaldi Production Machine Shop Supervisor Physician Director Of Strategic Sourcing José Cheek [facility], T Conclusions Summary No evidence of deep vein thrombosis or superficial thrombophlebitis in the left lower extremity . Procedure Type of Study: Veins:Lower Extremities DVT Study, Lower Extremity Left. Indications for Study:Pain in Limb and Swelling of Limb. Appropriate Use Criteria:9 Patient Status:Routine. Study Location:Vascular Lab. Technical Quality:Adequate visualization. Velocities are measured in cm/s ; Diameters are measured in cm Right Lower Extremities DVT Study Measurements Right 2D and Doppler Measurements + + + + +------+------+ + !Location !Visualized!Compressibility!Thrombosis!Signal!Reflux!Reflux ! ! ! ! ! ! ! !(sec) ! + + + + +------+------+ + !Common !Yes !Yes !None !Phasic! ! ! !Femoral ! ! ! ! ! ! ! + + + + +------+------+ + Left Lower Extremities DVT Study Measurements Left 2D and Doppler Measurements + + + + +------+------+ + !Location !Visualized!Compressibility!Thrombosis!Signal!Reflux!Reflux ! ! ! ! ! ! ! !(sec) ! + + + + +------+------+ + !GSV Thigh !Yes !Yes !None !Phasic! ! ! + + + + +------+------+ + !Common !Yes !Yes !None !Phasic! ! ! !Femoral ! ! ! ! ! ! ! + + + + +------+------+ + !Prox !Yes !Yes !None !Phasic! ! ! !Femoral ! ! ! ! ! ! ! + + + + +------+------+ + !Mid Femoral!Yes !Yes !None !Phasic! ! ! + + + + +------+------+ + !Dist !Yes !Yes !None !Phasic! ! ! !Femoral ! ! ! ! ! ! ! + + + + +------+------+ + !Popliteal !Yes !Yes !None !Phasic! ! ! + + + + +------+------+ + !Gastroc !Yes !Yes !None ! ! ! ! + + + + +------+------+ + !PTV !Yes !Yes !None ! ! ! ! + + + + +------+------+ + !Peroneal !Yes !Yes !None ! ! ! ! + + + + +------+------+ + Signature dtt: LELAND ASHTON dtjordin: 01/09/17 1449 Physician Self Edit
== END | disposition disaster alternative care site (69) ==
LOC: GCAR 14:30
DX: M79.89 Other specified soft tissue disorders (principal); C92.00 Acute myeloblastic leukemia, not having achieved remission; D47.3 Essential (hemorrhagic) thrombocythemia; D61.818 Other pancytopenia; D63.0 Anemia in neoplastic disease; L03.116 Cellulitis of left lower limb